=== PATIENT | female | born 1945 | race Caucasian/White ===

== ENCOUNTER 2018-05-09 23:25 | Emergency (ER) | payer MEDICARE, OTHER ==
[2018-05-10 00:35] LABS: ADD MAN DIFF? NO
[2018-05-10 00:50] LABS: BASOPHIL # 0.1 10^3/ul (0.0-0.1); BASOPHILS % 0.5 % (0.0-2.0); EOSINOPHILS # 0.2 10^3/ul (0.0-0.5); EOSINOPHILS % 1.7 % (0.0-7.0); HEMOGLOBIN 11.6 g/dl (12.0-16.0); LYMPHOCYTES # 2.9 10^3/ul (0.8-2.9); LYMPHOCYTES % 29.4 % (15.0-51.0); MEAN CORPUSCULAR HEMOGLOBIN 31.9 pg (29.0-33.0); MEAN CORPUSCULAR HGB CONC 34.1 g/dl (32.0-37.0); MEAN CORPUSCULAR VOLUME 93.4 fl (82.0-101.0); MEAN PLATELET VOLUME 9.6 fl (7.4-10.4); MONOCYTE # 1.2 10^3/ul (0.3-0.9); MONOCYTES % 11.7 % (0.0-11.0); NEUTROPHIL # 5.5 10^3/ul (1.6-7.5); NEUTROPHILS % 56.4 % (39.0-77.0); PLATELET COUNT 275 10^3/UL (140-415); RED BLOOD COUNT 3.64 10^6/ul (4.20-5.40); RED CELL DISTRIBUTION WIDTH 13.6 % (11.5-14.5)
[2018-05-10 00:50] LABS: WHITE BLOOD COUNT 9.8 10^3/ul (4.8-10.8)
[2018-05-10 00:59] LABS: ALANINE AMINOTRANSFERASE 22 IU/L (13-69); ALBUMIN 4.5 g/dl (3.3-4.9); ALBUMIN/GLOBULIN RATIO 1.55; ALKALINE PHOSPHATASE 60 IU/L (42-121); ANION GAP 12 (8-16); ASPARTATE AMINO TRANSFERASE 21 IU/L (15-46); BILIRUBIN,INDIRECT 0.4 mg/dl (0-1.1); BILIRUBIN,TOTAL 0.4 mg/dl (0.2-1.3); BLOOD UREA NITROGEN 18 mg/dl (7-20); CALCIUM 9.2 mg/dl (8.4-10.2); CARBON DIOXIDE 31 mmol/L (21-31); CHLORIDE 101 mmol/L (97-110); CREATININE 1.08 mg/dl (0.44-1.00); GLUCOSE 103 mg/dl (70-220); LIPASE 49 U/L (23-300); SODIUM 140 mmol/L (135-144); TOTAL PROTEIN 7.4 g/dl (6.1-8.1)
[2018-05-10] MEDS: KETOROLAC 15 MG INJ IV (01:05)
[2018-05-10 01:12] LABS: ADD UMIC YES; UR ASCORBIC ACID NEGATIVE (NEGATIVE); UR BILIRUBIN (Dip) NEGATIVE (NEGATIVE); UR BLOOD (Dip) NEGATIVE (NEGATIVE); UR CLARITY CLEAR (CLEAR); UR COLOR YELLOW (YELLOW); UR GLUCOSE (Dip) NEGATIVE (NEGATIVE); UR KETONES (Dip) NEGATIVE (NEGATIVE); UR LEUKOCYTE ESTERASE (Dip) 1+ Leu/ul (NEGATIVE); UR NITRITE (Dip) NEGATIVE (NEGATIVE); UR RBC 1 /HPF (0-5); UR SPECIFIC GRAVITY (Dip) 1.017 (1.003-1.030); UR SQUAMOUS EPITHELIAL CELL FEW /HPF (FEW); UR TOTAL PROTEIN (Dip) NEGATIVE (NEGATIVE); UR UROBILINOGEN (Dip) NEGATIVE (NEGATIVE); UR WBC 1 /HPF (0-5)
[2018-05-10] MEDS ORDERED: ACETAMINOPHEN 325 MG TAB PO (06:00)
[2018-05-10] MEDS ORDERED: ZOLPIDEM 5 MG TAB PO (06:00)
[2018-05-10] MEDS ORDERED: MAGNESIUM HYDROXIDE 30ML CUP PO (06:00)
[2018-05-10] MEDS ORDERED: HYDROCODONE/APAP (5/325) TAB PO (06:00)
[2018-05-10] MEDS ORDERED: DOCUSATE SODIUM 100 MG CAP PO (06:00)
[2018-05-10] MEDS ORDERED: NACL 0.9% 3 ML SYG IV (06:00)
[2018-05-10] MEDS ORDERED: VANCOMYCIN IV PER PHARMACY XX (06:00)
[2018-05-10] MEDS: ONDANSETRON 4 MG INJ IV (06:13)
[2018-05-10] MEDS: morphine 2 MG INJ IV ×3 (06:13→10:08)
[2018-05-10] MEDS: VANCOMYCIN 1.5 GM in SOD CHLORIDE 0.9% 250 ML IVPB (07:12)
[2018-05-10] MEDS ORDERED: ENOXAPARIN 40 MG/0.4 ML SYG SC (09:00)
[2018-05-10] MEDS: BUPROPION (XL) 150 MG TAB PO (09:53)
[2018-05-10] MEDS: ESCITALOPRAM 10 MG TAB PO (09:53)
[2018-05-10] MEDS: BUSPIRONE 10 MG TAB PO (09:53)
[2018-05-10] MEDS ORDERED: traZODone 100 MG TAB PO (21:00)
[2018-05-10] MEDS ORDERED: QUETIAPINE 100 MG TAB PO (21:00)
== END 2018-05-10 11:19 | disposition home or self-care (01) ==
LOC: E/R 23:25
DX: S92.352A Displaced fracture of fifth metatarsal bone, left foot, initial encounter for closed fracture (principal); L03.116 Cellulitis of left lower limb; F17.210 Nicotine dependence, cigarettes, uncomplicated; R40.2142 Coma scale, eyes open, spontaneous, at arrival to emergency department; R40.2252 Coma scale, best verbal response, oriented, at arrival to emergency department; R40.2362 Coma scale, best motor response, obeys commands, at arrival to emergency department; X58.XXXA Exposure to other specified factors, initial encounter; Y92.9 Unspecified place or not applicable
CPT/HCPCS: 29515; 36415; 73630-LT; 80053; 81001; 83690; 85025; 87040; 96374; 96375; 99284-25